=== PATIENT | male | born 1990 | race Caucasian/White ===

== ENCOUNTER 2020-03-19 00:08 | Emergency (ER) | payer SELFPAY ==
[~2020-03-19] VITALS: Ht 188 cm; Wt 91.0 kg
[2020-03-19 00:10] VITALS: BP 133/80
[2020-03-19] MEDS ORDERED: ACETAMINOPHEN 500MG TABLET PO ONE (02:15)
[2020-03-19] MEDS ORDERED: IBUPROFEN 800MG TABLET PO ONE (02:15)
== END 2020-03-19 03:12 | disposition home or self-care (01) ==
LOC: ER 00:35
DX: M79.605 Pain in left leg (principal); M79.604 Pain in right leg
CPT/HCPCS: 99283